=== PATIENT | female | born 1995 | race Caucasian/White ===

== ENCOUNTER 2017-07-17 08:15 | Emergency (ER) | payer OTHER ==
[2017-07-17] MEDS ORDERED: NA CHLORIDE 0.9% 2,000 ML ONE (08:31)
[2017-07-17] MEDS ORDERED: ONDANSETRON 4 MG/2 ML VIAL ONE (08:45)
[2017-07-17 08:47] LABS: Absolute Lymphocytes (CBC) 1.3 K/uL (0.7-4.9); Absolute Monocytes 0.3 K/uL (0.1-1.3); Absolute Neutrophil 7.3 K/uL (1.8-8.0); Basophils % 0.3 % (0-1.3); Eosinophils % 0.8 % (0-4.4); Hematocrit 41.6 % (36.0-45.0); Lymphocytes % 14.8 % (15.3-44.8); MCH 29.3 pg (27.0-35.0); MCV 86.7 fL (80-100); MPV 10.4 fL (7.6-11.3); Monocytes % 3.8 % (3.3-12.3)
[2017-07-17 08:53] LABS: Arterial Blood Carboxyhemoglob 0.6 % (0-1.5); Blood Gas Oxyhemoglobin 95.5 % (94-97); Blood O2 Saturation 96.9 % (92-98.5)
[2017-07-17 08:55] LABS: Protime INR 1.08
[2017-07-17 09:04] LABS: Bicarbonate 26 mEq/L (21-31); Glucose Level 94 mg/dL (65-120); Lipase 22 U/L (22-51); Potassium 3.7 mEq/L (3.6-5.0); Sodium Level 137 mEq/L (135-145)
[2017-07-17 09:10] LABS: ALT/SGPT 13 IU/L (10-60); AST/SGOT 19 IU/L (10-42); Albumin 4.1 g/dL (3.2-5.5); Alkaline Phosphatase 44 IU/L (42-121); BUN Blood Urea Nitrogen 11 mg/dL (6-20); Bilirubin Direct 0.2 mg/dL (0-0.2); Creatine Phosphokinase 95 IU/L (22-269); Protein, Total 7.4 g/dL (6.0-8.3)
[2017-07-17 10:29] LABS: Urine Blood NEGATIVE (NEG); Urine Glucose NEGATIVE (NEG); Urine Protein NEGATIVE (NEG); Urine Specific Gravity 1.015 (1.005-1.030)
[2017-07-17 10:35] LABS: Urine Bacteria <20 /HPF (<20); Urine RBC <5 /HPF (NONE SEEN)
[2017-07-17 10:36] LABS: Urine Culture Reflex Order NOT NEEDED
--- NOTE | 2017-07-17 10:58 | RAD REPORT ---
EXAM DESCRIPTION: Lesa Single View07/17/2017 8:44 am CLINICAL HISTORY: abd pain COMPARISON: none FINDINGS: The lungs appear clear of acute infiltrate. The heart is normal size IMPRESSION: No acute abnormalities displayed
--- NOTE | 2017-07-17 11:18 | EDPHYS ---
Physician Documentation [facility] Name: Lupe Chaney Age: 22 yrs Sex: Female : 1995 Arrival Date: 07/17/2017 Time: 08:16 Bed 6 Private MD: ED Physician Red Jha HPI: 07/17 08:51 This 22 yrs old Female presents to ER via Ambulatory with complaints of snw Abdominal Pain, Vomiting/Diarrhea. 08:51 The patient presents with abdominal pain that is diffuse. Onset: The symptoms/episode snw began/occurred suddenly, today, at 02:00, and became persistent. The symptoms do not radiate. Associated signs and symptoms: Pertinent positives: nausea, vomiting, and diarrhea. The symptoms are described as crampy. Severity of pain: At its worst the pain was moderate. The patient has not experienced similar symptoms in the past. The patient has not recently seen a physician. no hx of surgery, takes control, no edema, allergic to Zithromax. 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 - Social history:: Smoking status: Patient/guardian denies using tobacco. - Ebola Screening: : No symptoms or risks identified at this time. ROS: 08:50 Constitutional: Negative for fever, chills, and weight loss, Eyes: Negative for injury, snw pain, redness, and discharge, ENT: Negative for injury, pain, and discharge, Neck: Negative for injury, pain, and swelling, Cardiovascular: Negative for chest pain, palpitations, and edema, Respiratory: Negative for shortness of breath, cough, wheezing, and pleuritic chest pain. 08:50 Back: Negative for injury and pain, : Negative for injury, bleeding, discharge, and swelling, MS/Extremity: Negative for injury and deformity, Skin: Negative for injury, rash, and discoloration. 08:50 Abdomen/GI: Positive for abdominal pain, nausea, vomiting, and diarrhea. 08:50 Neuro: Positive for dizziness. Exam: 08:49 Constitutional: This is a well developed, well nourished patient who is awake, alert, snw and in no acute distress. Head/Face: Normocephalic, atraumatic. Eyes: Pupils equal round and reactive to light, extra-ocular motions intact. Lids and lashes normal. Conjunctiva and sclera are non-icteric and not injected. Cornea within normal limits. Periorbital areas with no swelling, redness, or edema. ENT: Nares patent. No nasal discharge, no septal abnormalities noted. Tympanic membranes are normal and external auditory canals are clear. Oropharynx with no redness, swelling, or masses, exudates, or evidence of obstruction, uvula midline. Mucous membranes moist. Neck: Trachea midline, no thyromegaly or masses palpated, and no cervical lymphadenopathy. Supple, full range of motion without nuchal rigidity, or vertebral point tenderness. No Meningismus. Chest/axilla: Normal chest wall appearance and motion. Nontender with no deformity. No lesions are appreciated. Cardiovascular: Regular rate and rhythm with a normal S1 and S2. No gallops, murmurs, or rubs. Normal PMI, no JVD. No pulse deficits. Respiratory: Lungs have equal breath sounds bilaterally, clear to auscultation and percussion. No rales, rhonchi or wheezes noted. No increased work of breathing, no retractions or nasal flaring. Abdomen/GI: Soft, mildly tender, with normal bowel sounds. No distension or tympany. No guarding or rebound. No evidence of tenderness throughout. Back: No spinal tenderness. No costovertebral tenderness. Full range of motion. Skin: Warm, dry with normal turgor. Normal color with no rashes, no lesions, and no evidence of cellulitis. MS/ Extremity: Pulses equal, no cyanosis. Neurovascular intact. Full, normal range of motion. Neuro: Awake and alert, GCS 15, oriented to person, place, time, and situation. Cranial nerves II-XII grossly intact. Motor strength 5/5 in all extremities. Sensory grossly intact. Cerebellar exam normal. Normal gait. Vital Signs: 08:20 BP 107 / 71; Pulse 87; Resp 18; Temp 98(TE); Pulse Ox 99% on R/A; Weight 65.77 kg; sv Height 5 ft. 5 in. (165.10 cm); Pain 3/10; 09:29 BP 100 / 58; Pulse 85; Resp 15; Pulse Ox 100% on R/A; hb 10:15 BP 102 / 60; Pulse 84; Resp 15; Pulse Ox 100% on R/A; hb 11:00 BP 103 / 62; Pulse 86; Resp 16; Pulse Ox 100% on R/A; hb 08:20 Body Mass Index 24.13 (65.77 kg, 165.10 cm) sv MDM: 09:01 Patient medically screened. snw 11:20 Data reviewed: vital signs, nurses notes. Data interpreted: Pulse oximetry: on room air snw is 100 %. Interpretation: normal. Counseling: I had a detailed discussion with the patient and/or guardian regarding: the historical points, exam findings, and any diagnostic results supporting the discharge/admit diagnosis, lab results, radiology results, the need for outpatient follow up, to return to the emergency department if symptoms worsen or persist or if there are any questions or concerns that arise at home. Special discussion: Based on the patient's Hx, exam, and Dx evaluation, there is no indication for emergent surgery or inpatient Tx. It is understood by the patient/guardian that if the Sx's persist or worsen they need to return immediately for re-evaluation. Based on the history and exam findings, there is no indication for further emergent testing or inpatient evaluation. I discussed with the patient/guardian the need to see the primary care provider for further evaluation of the symptoms. 07/17 08:25 Order name: Basic Metabolic Panel; Complete Time: 09:16 snw 07/17 08:25 Order name: Blood Culture Adult (2) snw 07/17 08:25 Order name: CBC with Diff; Complete Time: 09: snw 07/17 08:25 Order name: CPK; Complete Time: 09:16 snw 07/17 08:25 Order name: Lactate; Complete Time: 09: snw 07/17 08:25 Order name: LFT's; Complete Time: 09:16 snw 07/17 08:25 Order name: Lipase; Complete Time: 09:16 snw 07/17 08:25 Order name: Procalcitonin; Complete Time: 09:29 snw 07/17 08:25 Order name: Protime (+inr); Complete Time: 09:01 snw 07/17 08:25 Order name: Ptt, Activated; Complete Time: 09:01 snw 07/17 08:25 Order name: ABG; Complete Time: 09:06 snw 07/17 08:25 Order name: Urine Microscopic Only; Complete Time: 10:53 snw 07/17 08:25 Order name: Urine Culture snw 07/17 08:40 Order name: Glucose, Ancillary Testing; Complete Time: 09:01 EDMS 07/17 08:25 Order name: Chest Single View XRAY; Complete Time: 11:00 snw 07/17 08:25 Order name: Accucheck; Complete Time: 08:39 snw 07/17 08:25 Order name: Cardiac monitoring; Complete Time: 08:39 snw 07/17 08:25 Order name: EKG - Nurse/Tech; Complete Time: 08:40 snw 07/17 08:25 Order name: IV Saline Lock - Large Bore; Complete Time: 08:40 snw 07/17 08:25 Order name: Labs collected and sent; Complete Time: 08:40 snw 07/17 08:25 Order name: O2 Per Protocol; Complete Time: 08:40 snw 07/17 08:25 Order name: O2 Sat Monitoring; Complete Time: 08:40 snw 07/17 08:25 Order name: Urine Dipstick-Ancillary (obtain specimen); Complete Time: 10:26 snw 07/17 08:25 Order name: Urine Test (obtain specimen); Complete Time: 10:26 snw 07/17 10:27 Order name: Urine Dipstick--Ancillary (enter results); Complete Time: 10:53 em1 07/17 10:27 Order name: Urine --Ancillary (enter results); Complete Time: 10:53 em1 Administered Medications: 08:40 Drug: NS 0.9% (30 ml/kg) 30 ml/kg Route: IV; Rate: bolus; Site: right antecubital; ph 10:30 Follow up: IV Status: Completed infusion hb Disposition: 12:37 Co-signature as Attending Physician, Red Jha MD. gs Disposition: 07/17/17 11:18 Discharged to Home. Impression: Vomiting, unspecified, Diarrhea, unspecified, Volume depletion. - Condition is Stable. - Discharge Instructions: Food Choices to Help Relieve Diarrhea, Adult, Dehydration, Adult, Diarrhea, Clear Liquid Diet, Nausea and Vomiting, Rehydration, Adult. - Prescriptions for Bentyl 20 mg Oral Tablet - take 1 tablet by ORAL route every 6 hours As needed; 20 tablet. Zofran 4 mg Oral Tablet - take 1 tablet by ORAL route every 12 hours As needed; 20 tablet. - Work release form, Medication Reconciliation Form, Thank You Letter, Antibiotic Education, Prescription Opioid Use form. - Follow up: Private Physician; When: 1 - 2 days; Reason: Recheck today's complaints, Continuance of care, Re-evaluation by your physician. Follow up: Emergency Department; When: As needed; Reason: Worsening of condition. Signatures: Dispatcher [employer] EDTonya Rico, RN RN Maryellen Mustafa FNP-C FNP-Terri Toribio RN RN Shanika Dickerson RN RN Red Jha MD MD Corrections: (The following items were deleted from the chart) 11:32 11:18 07/17/2017 11:18 Discharged to Home. Impression: Vomiting, unspecified; Diarrhea, hb unspecified; Volume depletion. Condition is Stable. Forms are Medication Reconciliation Form, Thank You Letter, Antibiotic Education, Prescription Opioid Use. Follow up: Private Physician; When: 1 - 2 days; Reason: Recheck today's complaints, Continuance of care, Re-evaluation by your physician. Follow up: Emergency Department; When: As needed; Reason: Worsening of condition. snw
--- NOTE | 2017-07-17 11:18 | ER ---
Nurse's Notes [facility] Name: Lupe Chaney Age: 22 yrs Sex: Female : 1995 Arrival Date: 07/17/2017 Time: 08:16 Bed 6 Private MD: Diagnosis: Vomiting, unspecified;Diarrhea, unspecified;Volume depletion Presentation: 07/17 08:18 Presenting complaint: Patient states: v/d/dizziness, lower abd pain started at 0200. sv Transition of care: patient was not received from another setting of care. Onset of symptoms was July 17, 2017 at 02:00. Risk Assessment: Do you want to hurt yourself or someone else? Patient reports no desire to harm self or others. Care prior to arrival: None. 08:18 Method Of Arrival: Ambulatory sv 08:18 Acuity: OLEGARIO 3 sv 09:05 Initial Sepsis Screen: Does the patient meet any 2 criteria? No. Patient's initial ph sepsis screen is negative. Does the patient have a suspected source of infection? No. Patient's initial sepsis screen is negative. 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 - Social history:: Smoking status: Patient/guardian denies using tobacco. - Ebola Screening: : No symptoms or risks identified at this time. Screenin:02 Abuse screen: Denies threats or abuse. Denies injuries from another. Nutritional ph screening: No deficits noted. Tuberculosis screening: No symptoms or risk factors identified. Fall Risk None identified. Assessment: 08:45 General: Appears in no apparent distress. uncomfortable, well groomed, Behavior is ph calm, cooperative, appropriate for age, Denies fever. Pain: Complains of pain in right lower quadrant and left lower quadrant. Neuro: Level of Consciousness is awake, alert, obeys commands, Oriented to person, place, time, situation. 08:45 Cardiovascular: Reports nausea, vomiting, Denies chest pain, palpitations, shortness of ph breath. Respiratory: Airway is patent Respiratory effort is even, unlabored, Respiratory pattern is regular, symmetrical. GI: Abdomen is flat, non-distended, Reports lower abdominal pain, diarrhea, nausea, vomiting. GI: insulin pump noted to RUQ. : No signs and/or symptoms were reported regarding the genitourinary system. Derm: Skin is intact, is healthy with good turgor, Skin is pink, warm \T\ dry. Musculoskeletal: Circulation, motion, and sensation intact. Range of motion: intact in all extremities. 09:29 Reassessment: Patient appears in no apparent distress at this time. No changes from hb previously documented assessment. Patient and/or family updated on plan of care and expected duration. Pain level reassessed. Patient is alert, oriented x 3, equal unlabored respirations, skin warm/dry/pink. 10:15 Reassessment: Patient appears in no apparent distress at this time. No changes from hb previously documented assessment. Patient and/or family updated on plan of care and expected duration. Pain level reassessed. Patient is alert, oriented x 3, equal unlabored respirations, skin warm/dry/pink. 11:15 Reassessment: Patient appears in no apparent distress at this time. No changes from hb previously documented assessment. Patient and/or family updated on plan of care and expected duration. Pain level reassessed. Patient is alert, oriented x 3, equal unlabored respirations, skin warm/dry/pink. Vital Signs: 08:20 BP 107 / 71; Pulse 87; Resp 18; Temp 98(TE); Pulse Ox 99% on R/A; Weight 65.77 kg; sv Height 5 ft. 5 in. (165.10 cm); Pain 3/10; 09:29 BP 100 / 58; Pulse 85; Resp 15; Pulse Ox 100% on R/A; hb 10:15 BP 102 / 60; Pulse 84; Resp 15; Pulse Ox 100% on R/A; hb 11:00 BP 103 / 62; Pulse 86; Resp 16; Pulse Ox 100% on R/A; hb 08:20 Body Mass Index 24.13 (65.77 kg, 165.10 cm) sv ED Course: 08:16 Patient arrived in ED. as 08:19 Triage completed. sv 08:20 Arm band placed on right wrist. sv 08:24 Maryellen Feliz FNP-C is PHCP. snw 08:24 Red Jha MD is Attending Physician. snw 08:26 Terri Guthrie, RN is Primary Nurse. ph 08:41 Initial lab(s) drawn, by me, sent to lab. Inserted saline lock: 22 gauge in right ph antecubital area, using aseptic technique. Blood collected. 08:43 Chest Single View XRAY In Process Unspecified. EDMS 09:05 Patient has correct armband on for positive identification. Placed in gown. Bed in low ph position. Call light in reach. Side rails up X 1. Pulse ox on. NIBP on. Warm blanket given. 10:19 Terri Guthrie, RN is Primary Nurse. ph 11:30 No provider procedures requiring assistance completed. IV discontinued, intact, hb bleeding controlled, No redness/swelling at site. Pressure dressing applied. Administered Medications: 08:40 Drug: NS 0.9% (30 ml/kg) 30 ml/kg Route: IV; Rate: bolus; Site: right antecubital; ph 10:30 Follow up: IV Status: Completed infusion hb Outcome: 11:18 Discharge ordered by . snw 11:30 Discharged to home ambulatory. hb 11:30 Condition: stable 11:30 Discharge instructions given to patient, Instructed on discharge instructions, follow up and referral plans. medication usage, Demonstrated understanding of instructions, follow-up care, medications, Prescriptions given X 2. 11:32 Patient left the ED. hb Signatures: Dispatcher [employer] EDWI Tonya Corona RN RN Maryellen Feliz, DIVISION MERCHANDISE MANAGER-C DIVISION MERCHANDISE MANAGER-Csnw Oanh Webster as Terri Guthrie RN RN Shanika Dickerson RN RN hb
[2017-07-17 11:35] VITALS: TEMP 98
[2017-07-17 11:36] VITALS: O2SAT 100
[2017-07-17 11:38] VITALS: BP 103/62
--- NOTE | 2017-07-18 07:39 | EKG ---
Test Date: 2017-07-17 Test Time: 08:32:35 Content Administrator: AMADA MEASUREMENT RESULTS: Intervals: Rate: 79 MD: 154 QRSD: 82 QT: 372 QTc: 426 Sprague: P: 71 MD: 154 QRS: 69 T: 59 INTERPRETIVE STATEMENTS: Normal sinus rhythm Normal ECG No previous ECG available for comparison Electronically Signed On 07-18-17 07:38:13 CDT by Vern Jackson
== END 2017-07-17 11:32 | disposition home or self-care (01) ==
LOC: ER 08:15
DX: E86.9 Volume depletion, unspecified (principal); R19.7 Diarrhea, unspecified; E11.9 Type 2 diabetes mellitus without complications; Z96.41 Presence of insulin pump (external) (internal); Z79.4 Long term (current) use of insulin; Z88.3 Allergy status to other anti-infective agents
CPT/HCPCS: 36415; 71045; 80048; 80076; 81003; 81015; 81025; 82550; 82805; 82962; 83605; 83690; 84145; 85025; 85610; 85730; 87040; 87086; 87088; 93005; 96360; 96361; 96365; 96366; 99284; J2405; J7030

== ENCOUNTER 2017-08-09 23:37 | Emergency (ER) | payer OTHER ==
--- OUTSIDE RECORDS SUMMARY | 2017-08-09 23:39 | XMS REPORT ---
:1995 [facility] [address] [place] [id number] Care Team Providers Name Role Phone PROVIDER, ED TEMP Unavailable Unavailable Problems This patient has no known problems. Allergies, Adverse Reactions, Alerts This patient has no known allergies or adverse reactions. Medications This patient has no known medications. Results Test Description Test Time Test Comments Text Results Atomic Results Result Comments Urinalysis 2016-11-24 12:32:00 Test Item Value Reference Range Comments Urinalysis (test code=UACLR) Yellow Yellow Urinalysis (test code=UACLY) CLEAR Clear Urinalysis (test code=SPGR) 1.010 1.005-1.030 Urinalysis (test code=AUGUSTUS) 6.5 5.0-9.0 Urinalysis (test code=UALEU) Small Negative Urinalysis (test code=UANIT) Negative Negative Urinalysis (test code=PROUADIP) Negative mg/dL Neg-Trace Urinalysis (test code=GLUCU) 250 mg/dL Negative Urinalysis (test code=KETU) Negative mg/dL Negative Urinalysis (test code=UAUROB) 0.2 mg/dL 0.2-1.0 Urinalysis (test code=UABIL) Negative Negative Urinalysis (test code=UABLD) Negative Negative Urinalysis (test code=UARBC) None Seen HPF 0-3 Urinalysis (test code=UAWBC) 7-10 HPF 0-3 Urinalysis (test code=UASQUAM) 4-6 HPF 0-3 Urinalysis (test code=UABAC) 2+ HPF None Seen Urinalysis (test code=UACAST) NONE SEEN LPF 0-3 Hyaline Urine Source: Urine Clean [id number] 12:32:00 Test Item Value Reference Range Comments Chemistry (test 136 mmol/L 136-145 code=NA-T) Chemistry (test code=K-T) 4.4 mmol/L 3.5-5.1 Chemistry (test code=CL) 104 mmol/L 98-107 Chemistry (test code=CO2) 26 mmol/L 22-29 Chemistry (test 10 mmol/L 10-20 code=ANGP) Chemistry (test code=BUN) 9 mg/dL 8.4-21.0 Chemistry (test 0.77 mg/dL 0.6-1.1 code=CREATT) Chemistry (test Greater than 90 Reference Range for code=EGFRMDRD) Estimated GFR: Greater than 90 mL/min/1.73 m2NOTE:The MDRD equation has not been validated for use with theelderly (over 70 years of age), women, patientswith serious comorbid condition or persons with extremes ofbody size, muscle mass, or nutritional status. Chemistry (test 113 mg/dL 70-105 code=GLU-T) Chemistry (test code=CA) 9.7 mg/dL 7.8-10.44 Chemistry (test 2.0 mg/dL 0.2-1.2 code=TBILI) Chemistry (test code=TP) 7.2 g/dL 6.0-8.3 Chemistry (test code=ALB) 4.1 g/dL 3.5-5.0 Chemistry (test 3.1 g/dL 2.4-3.5 code=GLOB) Chemistry (test code=AG) 1.3 g/dL 1.2-2.2 Chemistry (test code=ALP) 66 U/L 40-150 Chemistry (test code=AST) 15 U/L 5-30 Chemistry (test code=ALT) 10 U/L 8-55 [id number] 12:32:00 Test Item Value Reference Range Comments Chemistry (test code=LIP) 8 U/L 8-78 [id number] 12:31:00 Test Item Value Reference Range Comments Chemistry (test code=BOHB) 0.10 mmol/L 0.02-0.27 [id number] 12:19:00 Test Item Value Reference Range Comments Urinalysis (test Negative Negative Method of sensitivity- code=BHCGUT) INDETERMINANT: results should be repeated after 48-72 hrs POSITIVE: results may be detected as early as 1 day after the first missed period A dilute urine specimen may not contain representativelevels of hCG.If is still suspected, a first morning urinespecimen OR a random blood specimen should be obtainedfrom the patient 48-72 hours later and re-tested. * Urinalysis (test 1.010 1.002-1.036 code=PREGUSG) [id number] 12:15:00 Test Item Value Reference Range Comments Accuchek (test code=ACU) 147 mg/dL 70-110 [id number] 12:08:00 Test Item Value Reference Range Comments Hematology (test code=WBCT) 5.4 thou/uL 4.8-10.8 Hematology (test code=RBCT) 5.06 mill/uL 4.00-5.20 Hematology (test code=HGBT) 14.8 g/dL 12.0-16.0 Hematology (test code=HCTT) 45.6 % 36.0-47.0 Hematology (test code=MCV) 90.1 fl 77.0-87.0 Hematology (test code=MCH) 29.2 pg 25.0-35.0 Hematology (test code=MCHC) 32.4 g/dL 32.0-36.0 Hematology (test code=RDW) 10.8 % 11.5-14.5 Hematology (test code=PLTT) 234 thou/uL 130-400 Hematology (test code=MPV) 8.3 fL 7.4-10.4 Hematology (test code=%NEUT) 43.5 % 31.0-61.0 Hematology (test code=%LYMPH) 47.2 % 28.0-48.0 Hematology (test code=%MONO) 6.1 % 0.0-4.0 Hematology (test code=%EOS) 2.8 % 0.0-10.0 Hematology (test code=%BASO) 0.5 % 0.0-1.0 Hematology (test code=NEUT#) 2.4 thou/uL 1.40-6.50 Hematology (test code=LYMPH#) 2.6 thou/uL 1.20-3.40 Hematology (test code=MONO#) 0.3 thou/uL 0.11-0.59 Hematology (test code=EOS#) 0.1 thou/uL 0.0-0.7 Hematology (test code=BASO#) 0.0 thou/uL 0.0-0.2
[2017-08-10] MEDS ORDERED: ONDANSETRON 4 MG (ODT) TAB ONE (00:21)
[2017-08-10] MEDS ORDERED: NA CHLORIDE 0.9% 1,000 ML ONE ×2 (00:43→01:41)
[2017-08-10 01:23] LABS: Absolute Lymphocytes (CBC) 1.3 K/uL (0.7-4.9); Absolute Monocytes 0.3 K/uL (0.1-1.3); Absolute Neutrophil 7.4 K/uL (1.8-8.0); Basophils % 0.2 % (0-1.3); Eosinophils % 1.7 % (0-4.4); Hematocrit 42.4 % (36.0-45.0); Lymphocytes % 14.7 % (15.3-44.8); MCH 29.7 pg (27.0-35.0); MCV 86.9 fL (80-100); MPV 9.9 fL (7.6-11.3); RBC Red Blood Cell Count 4.88 M/uL (3.86-4.86)
[2017-08-10 01:32] LABS: ALT/SGPT 17 U/L (12-78); AST/SGOT 13 U/L (15-37); Albumin 3.9 g/dL (3.4-5.0); Alkaline Phosphatase 56 U/L (45-117); BUN Blood Urea Nitrogen 14 mg/dL (7-18); Bicarbonate 27 mmol/L (21-32); Bilirubin Direct 0.3 mg/dL (0-0.2); Bilirubin Total 1.6 mg/dL (0.2-1.0); Glucose Level 160 mg/dL (74-106); Lipase 77 U/L (73-393); Potassium 3.6 mmol/L (3.5-5.1); Protein, Total 7.6 g/dL (6.4-8.2); Sodium Level 138 mmol/L (136-145)
[2017-08-10 01:39] LABS: Urine Blood NEGATIVE (NEG); Urine Glucose NEGATIVE (NEG); Urine Protein 1+ (NEG); Urine pH 7.5 (5.0-7.0)
[2017-08-10 01:58] LABS: Urine Bacteria <20 /HPF (<20); Urine Culture Reflex Order NOT NEEDED; Urine RBC NONE SEEN /HPF (NONE SEEN)
[2017-08-10 01:59] LABS: Urine Mucus SLIGHT /HPF (NONE SEEN)
--- NOTE | 2017-08-10 02:20 | EDPHYS ---
Physician Documentation [facility] Name: Lupe Chaney Age: 22 yrs Sex: Female : 1995 Arrival Date: 08/09/2017 Time: 23:39 Bed 27 Private MD: ED Physician Bala Trinidad HPI: 08/10 00:42 This 22 yrs old Female presents to ER via Ambulatory with complaints of snw Abdominal Pain. 00:42 The patient presents with abdominal pain that is diffuse. Onset: The symptoms/episode snw began/occurred suddenly, today. The symptoms do not radiate. Associated signs and symptoms: Pertinent positives: nausea and vomiting, large ketones in urine. The symptoms are described as crampy. Severity of pain: At its worst the pain was moderate. The patient has experienced a previous episode, approximately 3 weeks ago. The patient has been recently seen at the [facility] Emergency Department, a couple of weeks ago, for similar complaints labs were performed, was given IV fluids, was given a prescription for pain medications, was given a prescription for an antiemetic. 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 - Social history:: Smoking status: Patient/guardian denies using tobacco, Patient/guardian denies using alcohol, street drugs. - Ebola Screening: : No symptoms or risks identified at this time. ROS: 00:41 Constitutional: Negative for fever, chills, and weight loss, Eyes: Negative for injury, snw pain, redness, and discharge, ENT: Negative for injury, pain, and discharge, Neck: Negative for injury, pain, and swelling, Cardiovascular: Negative for chest pain, palpitations, and edema, Respiratory: Negative for shortness of breath, cough, wheezing, and pleuritic chest pain, Back: Negative for injury and pain, : Negative for injury, bleeding, discharge, and swelling, MS/Extremity: Negative for injury and deformity, Skin: Negative for injury, rash, and discoloration, Neuro: Negative for headache, weakness, numbness, tingling, and seizure, Psych: Negative for depression, anxiety, suicide ideation, homicidal ideation, and hallucinations. 00:41 Abdomen/GI: Positive for abdominal pain, nausea and vomiting. Exam: 00:41 Constitutional: This is a well developed, well nourished patient who is awake, alert, snw and in no acute distress. Head/Face: Normocephalic, atraumatic. Eyes: Pupils equal round and reactive to light, extra-ocular motions intact. Lids and lashes normal. Conjunctiva and sclera are non-icteric and not injected. Cornea within normal limits. Periorbital areas with no swelling, redness, or edema. ENT: Nares patent. No nasal discharge, no septal abnormalities noted. Tympanic membranes are normal and external auditory canals are clear. Oropharynx with no redness, swelling, or masses, exudates, or evidence of obstruction, uvula midline. Mucous membranes moist. Neck: Trachea midline, no thyromegaly or masses palpated, and no cervical lymphadenopathy. Supple, full range of motion without nuchal rigidity, or vertebral point tenderness. No Meningismus. Chest/axilla: Normal chest wall appearance and motion. Nontender with no deformity. No lesions are appreciated. Cardiovascular: Regular rate and rhythm with a normal S1 and S2. No gallops, murmurs, or rubs. Normal PMI, no JVD. No pulse deficits. Respiratory: Lungs have equal breath sounds bilaterally, clear to auscultation and percussion. No rales, rhonchi or wheezes noted. No increased work of breathing, no retractions or nasal flaring. Abdomen/GI: Soft, mildly tender, with normal bowel sounds. No distension or tympany. No guarding or rebound. No evidence of tenderness throughout. Back: No spinal tenderness. No costovertebral tenderness. Full range of motion. Skin: Warm, dry with normal turgor. Normal color with no rashes, no lesions, and no evidence of cellulitis. MS/ Extremity: Pulses equal, no cyanosis. Neurovascular intact. Full, normal range of motion. Neuro: Awake and alert, GCS 15, oriented to person, place, time, and situation. Cranial nerves II-XII grossly intact. Motor strength 5/5 in all extremities. Sensory grossly intact. Cerebellar exam normal. Normal gait. Psych: Awake, alert, with orientation to person, place and time. Behavior, mood, and affect are within normal limits. Vital Signs: 00:06 BP 122 / 80; Pulse 89; Resp 18 S; Temp 98.3; Pulse Ox 100% on R/A; Weight 68.04 kg (R); bb Height 5 ft. 5 in. (165.10 cm) (R); Pain 3/10; 02:34 BP 114 / 74; Pulse 90; Resp 17; Pulse Ox 100% on R/A; rk2 00:06 Body Mass Index 24.96 (68.04 kg, 165.10 cm) bb MDM: 08/09 23:49 Patient medically screened. snw 08/10 02:20 Data reviewed: vital signs, nurses notes. Data interpreted: Pulse oximetry: on room air snw is 100 %. Interpretation: normal. Counseling: I had a detailed discussion with the patient and/or guardian regarding: the historical points, exam findings, and any diagnostic results supporting the discharge/admit diagnosis, the presence of at least one elevated blood pressure reading (>120/80) during this emergency department visit, lab results, the need for outpatient follow up, to return to the emergency department if symptoms worsen or persist or if there are any questions or concerns that arise at home. Special discussion: Based on the history and exam findings, there is no indication for further emergent testing or inpatient evaluation. I discussed with the patient/guardian the need to see the primary care provider for further evaluation of the symptoms. 08/09 23:48 Order name: Urine Culture snw 08/09 23:48 Order name: Urine Microscopic Only; Complete Time: 02:02 snw 08/10 00:38 Order name: Basic Metabolic Panel; Complete Time: 01:39 snw 08/10 00:38 Order name: CBC with Diff; Complete Time: 01:39 snw 08/10 00:38 Order name: Hepatic Function; Complete Time: 01:39 snw 08/10 00:38 Order name: Lipase; Complete Time: 01:39 snw 08/09 23:48 Order name: Urine Test (obtain specimen); Complete Time: 01:47 snw 08/09 23:48 Order name: Urine Dipstick-Ancillary (obtain specimen); Complete Time: 01:47 snw 08/10 00:17 Order name: FSBS; Complete Time: 00:26 snw 08/10 00:38 Order name: Acetone, Serum; Complete Time: 01:39 snw 08/10 01:37 Order name: Urine Dipstick--Ancillary (enter results); Complete Time: 01:41 ms 08/10 01:37 Order name: Urine --Ancillary (enter results); Complete Time: 01:41 ms 08/10 00:38 Order name: IV Saline Lock; Complete Time: 01: snw 08/10 00:38 Order name: Labs collected and sent; Complete Time: 01: snw Administered Medications: 00:20 Drug: Zofran 4 mg Route: PO; rk2 01:51 Follow up: Response: No adverse reaction rk2 01:00 Drug: NS 0.9% 2000 ml Route: IV; Rate: 1000 ml; Site: right antecubital; rk2 02:33 Follow up: Response: No adverse reaction; IV Status: Completed infusion rk2 Disposition: 06:47 Co-signature as Attending Physician, Bala Trinidad MD. rn Disposition: 08/10/17 02:20 Discharged to Home. Impression: Type 1 diabetes mellitus with hyperglycemia. - Condition is Stable. - Discharge Instructions: Type 1 Diabetes Mellitus, Adult, Diabetes and Sick Day Management, Hyperglycemia, Blood Glucose Monitoring, Adult. - Prescriptions for Phenergan 25 mg Rectal Suppository - insert 1 suppository by RECTAL route every 6 hours As needed; 12 suppository. - Medication Reconciliation Form, Thank You Letter, Antibiotic Education, Prescription Opioid Use form. - Follow up: Private Physician; When: 1 - 2 days; Reason: Recheck today's complaints, Continuance of care, Re-evaluation by your physician. Follow up: Emergency Department; When: As needed; Reason: Worsening of condition. Signatures: Dispatcher [employer] EDMaryellen Brown, [employer] SALES REPRESENTATIVE-Csnw Mya Cr RN Bala Gillis MD MD rn Kidder, Rhonda, RN RN rk2 Corrections: (The following items were deleted from the chart) 02:37 02:20 08/10/2017 02:20 Discharged to Home. Impression: Type 1 diabetes mellitus with rk2 hyperglycemia. Condition is Stable. Discharge Instructions: Type 1 Diabetes Mellitus, Adult, Diabetes and Sick Day Management, Hyperglycemia, Blood Glucose Monitoring, Adult. Prescriptions for Phenergan 25 mg Rectal Suppository - insert 1 suppository by RECTAL route every 6 hours As needed; 12 suppository. and Forms are Medication Reconciliation Form, Thank You Letter, Antibiotic Education, Prescription Opioid Use. Follow up: Private Physician; When: 1 - 2 days; Reason: Recheck today's complaints, Continuance of care, Re-evaluation by your physician. Follow up: Emergency Department; When: As needed; Reason: Worsening of condition. snw
--- NOTE | 2017-08-10 02:20 | ER ---
Nurse's Notes [facility] Name: Lupe Chaney Age: 22 yrs Sex: Female : 1995 Arrival Date: 08/09/2017 Time: 23:39 Bed 27 Private MD: Diagnosis: Type 1 diabetes mellitus with hyperglycemia Presentation: 08/10 00:03 Presenting complaint: Patient states: she is having abdominal pain and vomiting since bb approx 1500 today has vomited > 10 times, pt is type one diabetic and states she is now showing large ketones, pt thinks she may have developed a seafood allergy was here a couple of weeks ago for similar symptoms and sent home with Bentyl and Zofran she took Zofran earlier today. Transition of care: patient was not received from another setting of care. Onset of symptoms was August 09, 2017 at 15:00. Risk Assessment: Do you want to hurt yourself or someone else? Patient reports no desire to harm self or others. Initial Sepsis Screen: Does the patient meet any 2 criteria? No. Patient's initial sepsis screen is negative. Does the patient have a suspected source of infection? No. Patient's initial sepsis screen is negative. Care prior to arrival: None. 00:03 Method Of Arrival: Ambulatory bb 00:03 Acuity: OLEGARIO 3 bb Triage Assessment: 00:15 General: Appears in no apparent distress. well groomed, well developed, well nourished, rk2 Behavior is calm, cooperative, appropriate for age. Pain: Complains of pain in abdomen. Neuro: Level of Consciousness is alert, obeys commands, Oriented to person, place, time, situation. Respiratory: Airway is patent Respiratory effort is even, unlabored, Respiratory pattern is regular, symmetrical. GI: Abdomen is flat, Abd is soft X 4 quads Abdomen is tender to palpation X 4 quads. Derm: Skin is pink, warm \T\ dry. 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 - Social history:: Smoking status: Patient/guardian denies using tobacco, Patient/guardian denies using alcohol, street drugs. - Ebola Screening: : No symptoms or risks identified at this time. Screenin:15 Abuse screen: Denies threats or abuse. Nutritional screening: No deficits noted. rk2 Tuberculosis screening: No symptoms or risk factors identified. Fall Risk None identified. Assessment: 01:50 Reassessment: Patient appears in no apparent distress at this time. No changes from rk2 previously documented assessment. Patient and/or family updated on plan of care and expected duration. Pain level reassessed. Nausea has improved. 02:36 GI: Bowel sounds. rk2 Vital Signs: 00:06 BP 122 / 80; Pulse 89; Resp 18 S; Temp 98.3; Pulse Ox 100% on R/A; Weight 68.04 kg (R); bb Height 5 ft. 5 in. (165.10 cm) (R); Pain 3/10; 02:34 BP 114 / 74; Pulse 90; Resp 17; Pulse Ox 100% on R/A; rk2 00:06 Body Mass Index 24.96 (68.04 kg, 165.10 cm) ED Course: 08/09 23:39 Patient arrived in ED. es 23:48 Maryellen Feliz FNP-C is [facility]. snw 23:49 Bala Trinidad MD is Attending Physician. snw 23:52 Isabelle Car, JARED is Primary Nurse. rk2 08/10 00:05 Triage completed. bb 00:06 Arm band placed on Patient placed in an exam room, on a stretcher, on pulse oximetry. bb Family accompanied patient. 00:15 Patient has correct armband on for positive identification. Bed in low position. Call rk2 light in reach. 02:36 No provider procedures requiring assistance completed. IV discontinued. rk2 Administered Medications: 00:20 Drug: Zofran 4 mg Route: PO; rk2 01:51 Follow up: Response: No adverse reaction rk2 01:00 Drug: NS 0.9% 2000 ml Route: IV; Rate: 1000 ml; Site: right antecubital; rk2 02:33 Follow up: Response: No adverse reaction; IV Status: Completed infusion rk2 Outcome: 02:20 Discharge ordered by . snw 02:36 Discharged to home ambulatory. rk2 02:36 Condition: improved 02:36 Discharge instructions given to patient, Prescriptions given X 1. 02:37 Patient left the ED. rk2 Signatures: Maryellen Feliz, SALES SERVICE COORDINATOR-C SALES SERVICE COORDINATOR-Katey Badillo Brenda, RN RN Isabelle Sawant RN RN rk2
[2017-08-10 02:41] VITALS: TEMP 98.3; O2SAT 100
[2017-08-10 02:42] VITALS: BP 114/74
== END 2017-08-10 02:37 | disposition home or self-care (01) ==
LOC: ER 23:37
DX: E10.65 Type 1 diabetes mellitus with hyperglycemia (principal); Z88.3 Allergy status to other anti-infective agents
CPT/HCPCS: 36415; 80048; 80076; 81003; 81015; 81025; 82010; 82962; 83690; 85025; 87086; 87088; 96360; 96361; 99283; J7030